=== PATIENT | male | born 1965 | race Caucasian/White ===

== ENCOUNTER 2021-06-11 10:52 | Emergency (ER) | payer OTHER, SELFPAY ==
--- NOTE | ~2021-06-11 | XR_ITS ---
EXAMINATION: XR chest 2V DATE: 06/11/2021 11:42 INDICATION: Cough TECHNIQUE: PA and lateral views of the chest are obtained. COMPARISON: 06/28/2015 FINDINGS: The lungs are free of acute opacities. There is no pleural effusion or pneumothorax. The ca rdiomediastinal silhouette is normal. There is mild thoracic spondylosis. IMPRESSION: 1. No acute cardiopulmonary abnormality. Reviewed, dictated and finalized at location A. SSIONS COUNSELOR
[2021-06-11 11:00] VITALS: BP 117/94; PULSE 90; RESP 20; TEMP 37.1; O2SAT 97
--- NOTE | 2021-06-11 11:27 | ED.GENADULT ---
HPI - General Adult General Chief complaint: Upper Respiratory Infection Stated complaint: Positive COVID needs x ray Time Seen by Provider: 06/11/21 11:27 Source: patient Mode of arrival: ambulatory Limitations: no limitations History of Present Illness HPI narrative: 55-year-old male patient presents to the [facility] with complaints of a cough. Patient states that he tested positive for Covid and started having symptoms about 8 days ago. Patient states he no longer is having fevers but continues to have body aches and chills. Patient states he continues to have a cough that he is concerned that he might have developing pneumonia. Patient is not vaccinated against Covid. Related Data Allergies Allergy/AdvReac Type Severity Reaction Status Date / Time No Known Allergies Allergy Verified 06/11/21 11:21 Review of Systems Review of Systems: CONSTITUTIONAL: Denies fever, positive chills, and sweats. EYES: Denies visual changes, redness, or discharge. ENT: Denies rhinorrhea, congestion, sore throat, or otalgia. CARDIOVASCULAR: Denies chest pain, palpitations, or edema. RESPIRATORY: Positive cough, denies dyspnea. GASTROINTESTINAL: Denies abdominal pain, nausea, vomiting, or diarrhea. GENITOURINARY: Denies dysuria or hematuria. SKIN: Denies rash or itching. MUSCULOSKELETAL: Denies back pain, joint pain, or myalgia. NEUROLOGIC: Denies headache, numbness, or weakness. PSYCHIATRIC: Denies anxiety or depression. [facility] Past Medical History Medical History (Updated 06/11/21 @ 12:01 by CASIMIRO Alexis) COVID-19 virus infection June 2021 Dysphagia Erectile dysfunction FHx: colon cancer Surgical History Surgical History History of tonsillectomy Family History Family History Mother Carcinoma of colon Grandparent Lung cancer Social History Social History Smoking status: Current every day smoker Alcohol intake: current Drinks per week: 1 Substance use: never Comments At the time of my signature I agree with nursing past medical history, surgical, social, and family history. There is no relevant family history pertinent to the presenting complaint. Exam Narrative: GENERAL: Well-appearing, well-nourished, and in no acute distress. HEAD: Normocephalic, atraumatic. EYES: PERRLA and EOMI. ENT: Nares with erythema and edema noted bilaterally, active rhinorrhea, no epistaxis. Mucous membranes moist. Posterior pharynx no erythema, tonsillar Serenity, exudates or lesions present. Bilateral TMs are clear with no erythema or foreign bodies to the canal. NECK: Supple. No lymphadenopathy CHEST: Clear to auscultation. No respiratory distress. Patient able talk in clear complete sentences. No tripoding noted. HEART: Regular rate and rhythm. No murmur heard. Normal peripheral pulses. ABDOMEN: Soft, nontender, nondistended, normal active bowel sounds. EXTREMITIES: Normal range of motion. No edema. SKIN: Warm, dry, no rash. NEURO: No focal deficits. Alert and oriented x3. Course Reevaluation(s) Reevaluation #1: Reevaluated patient notified him that his x-ray is negative for any pneumonia. His lung sounds are very good at this time. Discussed with him this most likely is a lingering cough which is expected with a COVID-19 infection. Discussed with patient I discharged him home with Tessalon Perles as well as steroids to help with the cough and I would advise him to continue quarantining until at least Sunday. He may return to work on Sunday but if he has lingering symptoms or continues to have worse symptoms I would advise him to stay home and follow-up with his doctor if he needs more time off. Discussed with patient about getting the COVID-19 vaccine after he has recovered given the fact that he is in the age category of being high risk. Patient jessica
== END 2021-06-11 12:05 | disposition home or self-care (01) ==
PROVIDERS: Emergency Provider Nurse Practitioner Family
DX: U07.1 COVID-19 (principal); F17.200 Nicotine dependence, unspecified, uncomplicated
CPT/HCPCS: 71046; 99213; G0463

== ENCOUNTER 2023-03-14 12:35 | Emergency (ER) | payer OTHER, SELFPAY ==
--- NOTE | ~2023-03-14 | CT_ITS ---
EXAMINATION: CT brain wo con DATE: 03/14/2023 13:55 INDICATION: Vision changes TECHNIQUE: Computed tomography (CT) of the head was performed without intravenous contrast. The dose- length product was 605.33 mGy-cm. Automated exposure control and iterative reconstruction technique w ere employed. COMPARISON: None FINDINGS: No acute intracranial hemorrhage, infarction, mass or mass effect. No ventriculomegaly or m idline shift. Basilar cisterns are patent. Paranasal sinuses and mastoids are pneumatized. No depress ed skull fractures. IMPRESSION: 1. No acute intracranial abnormality. No findings to explain patient's symptoms. Reviewed, dictated and finalized at location B. IMPRESSION: 1. No acute intracranial abnormality. No findings to explain patient's symptoms .
[2023-03-14 12:40] VITALS: BP 147/89; PULSE 88; RESP 20; TEMP 36.9; O2SAT 98
--- NOTE | 2023-03-14 12:44 | ECG_ITS ---
Measurements Intervals [place] Rate: 81 P: 19 SC: 154 QRS: -48 QRSD: 106 T: 8 QT: 373 QTc: 434 Interpretive Statements SINUS RHYTHM LEFT ANTERIOR FASCICULAR BLOCK BORDERLINE T WAVE ABNORMALITY- INFERIOR LEADS ABNORMAL ECG NO PREVIOUS ECG AVAILABLE FOR COMPARISON Electronically Signed On 03-14-2023 12:55:13 CDT by Kamaljit Couch D.O.
[2023-03-14 13:04] LABS: Basophils Absolute Auto 0.1 K/mm3 (0.0-0.1); Basophils Percent Auto 0.7 % (0.2-1.2); Eosinophils Absolute Auto 0.6 K/mm3 (0-0.3); Eosinophils Percent Auto 6.6 % (0-4.4); Hematocrit 43.7 % (42.0-52.0); Hemoglobin 14.9 g/dL (14.0-18.0); Immature Granulocyte Absolute 0.04 K/mm3 (0.00-0.031); Immature Granulocyte Percent A 0.5 % (0-0.5); Lymphocytes Absolute Auto 2.19 K/mm3 (0.9-3.2); Lymphocytes Percent Auto 26.3 % (18.3-44.2); Mean Corpuscular HGB Conc 34.1 g/dl (32-36); Mean Corpuscular Hemoglobin 30.9 pg (26-34); Mean Corpuscular Volume 90.7 fl (80-100); Mean Platelet Volume 9.7 fl (7.4-10.4); Monocytes Absolute Auto 0.7 K/mm3 (0.1-0.6); Monocytes Percent Auto 7.8 % (2.6-8.5); Neutrophils Absolute Auto 4.8 K/mm3 (1.3-6.7); Neutrophils Percent Auto 58.1 % (45.5-73.1); Platelet Count Result 248 k/mm3 (150-375); Red Blood Count 4.82 M/mm3 (4.6-6.20); Red Cell Distribution Width 12.3 % (11.5-14.5); White Blood Count 8.3 K/mm3 (4.5-10.0)
[2023-03-14 13:19] LABS: Alanine Aminotransferase 20 U/L (6-50); Albumin Level 4.5 g/dL (3.5-5.1); Alkaline Phosphatase 81 U/L (38-126); Anion Gap 9 mmol/L (8-16); Aspartate Amino Transferase 24 U/L (17-59); Bilirubin,Total 0.6 mg/dL (0.2-1.3); Blood Urea Nitrogen 16 mg/dL (9-20); Carbon Dioxide 24 mmol/L (22-30); Chloride 106 mmol/L (98-107); Estimated CRCL calculation 82 ml/min; Estimated Glomerular Filt Rate > 60; Glucose 108 mg/dL (65-110); Sodium 139 mmol/L (137-145)
[2023-03-14 14:19] VITALS: BP 141/86; PULSE 78; RESP 17; O2SAT 97
[2023-03-14 15:38] VITALS: BP 128/85; PULSE 99
[2023-03-14 15:40] VITALS: BP 141/107; PULSE 118
[2023-03-14 15:41] VITALS: BP 144/96; PULSE 112
--- NOTE | 2023-03-14 15:57 | ED.GENADULT ---
HPI - General Adult General Chief complaint: Dizziness Stated complaint: Dizziness earlier Time Seen by Provider: 03/14/23 13:45 History of Present Illness HPI narrative: 57-year-old male present emergency department for evaluation of blurred vision. Patient states prior to arrival he had been staring at a computer screen for approximately 25 minutes and then stood up and had difficulty focusing at a longer distance. Patient states that the symptoms lasted approximately 1 minute. Patient states he had blurred vision but denied any loss of vision with this. Patient was with other teachers at the time and they noticed he had no facial droop and no speech issues. Patient reports symptoms lasted approximate 1 minute and his vision returned to normal. Patient denies any headache after the episode. Patient has no prior history of CVA, hypertension or coagulopathies. Related Data Allergies Allergy/AdvReac Type Severity Reaction Status Date / Time No Known Allergies Allergy Verified 03/14/23 12:36 Review of Systems Review of Systems: All systems reviewed & are unremarkable except as noted in HPI and below PMFSH Past Medical History Medical History (Updated 03/14/23 @ 16:10 by Demarcus Jorge MD) COVID-19 virus infection June 2021 Dysphagia Erectile dysfunction FHx: colon cancer Surgical History Surgical History History of tonsillectomy Family History Family History Mother Carcinoma of colon Grandparent Lung cancer Social History Social History Smoking status: Current every day smoker Alcohol intake: current Drinks per week: 1 Substance use: never Exam Narrative: APPEARANCE: Well appearing, no pain, no distress, well-nourished. HEAD: normocephalic, atraumatic. EYES: PERRLA/EOMI, conjunctivae clear. Normal fundus exam NOSE: Normal no drainage NECK: Supple. No adenopathy, no masses. RESPIRATORY: Airway patent, respirations nonlabored. Clear to auscultation bilaterally, no rales, rhonchi, wheezing. CARDIOVASCULAR: Regular rate and rhythm without murmurs rubs or gallops. ABDOMINAL: Soft, nontender, nondistended, normal bowel sounds MUSCULOSKELETAL: Moves all extremities. Strength/ROM intact, No edema, No calf tenderness. NEURO: Alert. Cranial nerves II through XII intact. Grossly intact. Normal strength and coordination, normal forward and backward tandem gait. Negative Romberg. Normal visual dia SKIN: Warm, dry. Normal Color Course Course Emergency Course: 57-year-old male presented the ED for evaluation of a 1 minute episode of blurred vision that has since resolved. Patient is afebrile with no leukocytosis and a stable hemoglobin. Patient has a normal CMP. Head CT was negative for acute findings. I discussed case with neurology and they are comfortable with the patient having close outpatient follow up. All question concerns were addressed Vital Signs Vital signs: Vital Signs Temperature 98.4 F 03/14/23 12:40 Pulse Rate 88 03/14/23 12:40 Respiratory Rate 20 03/14/23 12:40 Blood Pressure 147/89 H 03/14/23 12:40 Pulse Oximetry 98 03/14/23 12:40 Oxygen Delivery Room Air 03/14/23 12:40 Temperature 98.4 F 03/14/23 12:40 Pulse Rate 77 03/14/23 16:18 Respiratory Rate 17 03/14/23 16:18 Blood Pressure 138/76 03/14/23 16:18 Pulse Oximetry 98 03/14/23 16:18 Oxygen Delivery Room Air 03/14/23 12:40 Medical Decision Making Differential Diagnosis Differential Diagnosis: Retinal detachment, eyestrain, occipital stroke, CVA, TIA, migraine Vital Signs Vital Signs: Vital Signs Temperature 98.4 F 03/14/23 12:40 Pulse Rate 88 03/14/23 12:40 Respiratory Rate 20 03/14/23 12:40 Blood Pressure 147/89 H 03/14/23 12:40 Pulse Oximetry 98 03/14/23 12:40 Oxygen Deliver
[2023-03-14 16:18] VITALS: BP 138/76; PULSE 77; RESP 17; O2SAT 98
== END 2023-03-14 16:19 | disposition home or self-care (01) ==
PROVIDERS: Emergency Provider Emergency Medicine; PCP Family Medicine
DX: H53.8 Other visual disturbances (principal); F17.200 Nicotine dependence, unspecified, uncomplicated; Z86.16 Personal history of COVID-19; I44.4 Left anterior fascicular block; R94.31 Abnormal electrocardiogram [ECG] [EKG]
CPT/HCPCS: 36415; 70450; 80053; 85025; 93005; 99284

== ENCOUNTER 2023-06-30 11:33 | Emergency (ER) | payer OTHER, SELFPAY ==
[2023-06-30 11:40] VITALS: BP 131/80; PULSE 87; RESP 16; TEMP 37.2; O2SAT 95
--- NOTE | 2023-06-30 11:54 | ED.GENADULT ---
HPI - General Adult General Chief complaint: Upper Respiratory Infection Stated complaint: Cough Source: patient, RN notes reviewed and old records reviewed Mode of arrival: ambulatory Limitations: no limitations History of Present Illness HPI narrative: 57-year-old male [facility] with complaint of productive cough, congestion this started approximately 3 weeks ago. Patient states is now having audible wheezing. Patient taking [id number] medications with no relief. Patient denies chest pain, shortness of breath, weakness, dizziness. MD complaint: Cough Onset (ago): week(s) (3) Related Data Allergies Allergy/AdvReac Type Severity Reaction Status Date / Time No Known Allergies Allergy Verified 05/28/23 10:16 Review of Systems Constitutional: Constitutional: Reports no additional constitutional complaints, Denies body ache(s), Denies chills, Denies fatigue, Denies fever(s) and Denies headache(s) Eyes: Eyes: Reports no additional eye complaints and Denies blurry vision ENT: Reports system reviewed and no additional complaints, except as documented, Denies vertigo, Denies dizziness, Denies ear discharge, Denies otalgia, Denies facial pain, Denies headache(s), Reports nasal congestion, Denies nasal discharge, Denies sinus pain, Denies sinus pressure and Denies sore throat Cardiovascular: Cardiovascular: Reports no additional cardiovascular complaints, Denies chest pain, Denies chest pain at rest, Denies rapid heart rate and Denies dyspnea Respiratory: Respiratory: Reports no additional respiratory complaints, Reports chest congestion, Reports cough, Denies pain on inspiration, Denies pain with cough and Denies dyspnea Gastrointestinal: Gastrointestinal: Denies abdominal pain, Denies diarrhea, Denies nausea and Denies vomiting Integumentary/Breasts: Skin/Breast: Denies rash Neurologic: Reports system reviewed and no additional complaints, except as documented, Denies vertigo, Denies dizziness and Denies headache(s) Endocrine: Endocrine: Denies fatigue PMF Past Medical History Medical History COVID-19 virus infection June 2021 Dysphagia Erectile dysfunction FHx: colon cancer Surgical History Surgical History History of tonsillectomy Family History Family History Mother Carcinoma of colon Grandparent Lung cancer Social History Social History Smoking status: Never smoker Alcohol intake: current Drinks per week: 1 Substance use: never Comments At the time of my signature, I reviewed and agree with the nursing past medical, surgical, social, and family history. There is no relevant family history pertinent to the patient complaint. Exam Const: General: cooperative, healthy appearing, no acute distress and well nourished Nutritional Appearance: well nourished Orientation/consciousness: patient oriented x3 Limitations: no limitations HENMT: Head: normal to inspection and normocephalic Ears: external ears normal, TM's normal bilaterally, mastoids normal and Abnormal EAC present Face/Nose/Sinus: normal facial exam Face and sinus: normal facial exam Mouth: Yes Normal oral and palatal mucosa present, Yes oropharynx normal and Yes moist mucous membranes Throat: tonsils normal, uvula midline and no uvular edema Eyes: General: appearance normal, both eyes and all related structures Sclera: sclerae normal Pupils: Equal, round and reactive pupils present Resp: Effort & Inspection: normal respiratory effort, able to speak in complete sentences, audible wheezes, Actively coughing, no respiratory distress and no retractions Auscultation: clear to auscultation bilaterally, no crackles, no rales, no rhonchi and wheezes inspiratory wheezes ( left lower lobe) and le
== END 2023-06-30 12:04 | disposition home or self-care (01) ==
PROVIDERS: Emergency Provider Registered Nurse; PCP Family Medicine
DX: J40 Bronchitis, not specified as acute or chronic (principal); Z86.16 Personal history of COVID-19
CPT/HCPCS: 99213; G0463